=== PATIENT | male | born 1980 | race Caucasian/White ===

== ENCOUNTER 2019-02-24 08:54 | Emergency (ER) | payer MEDICAID ==
[2019-02-24 09:02] VITALS: BP 136/86
--- NOTE | 2019-02-24 09:59 | EDPHY ---
General - History Smoking Status: Current every day smoker Time Seen by Provider: 02/24/19 09:34 Narrative: CLINICAL IMPRESSION: SCABIES, CHRONIC FOOT PAIN ASSESSMENT/PLAN: 38-year-old homeless male presents to the emergency department with complaints of chronic pain to both feet x3 weeks and possible scabies to left wrist. Patient reports the lesions on his wrist look "exactly like the scabies I had a couple weeks ago". There are no signs of secondary infection, blistering, open wounds or cellulitis. Patient has chronic erythema to his feet suggestive of previous minor frostbite and admits that he walks frequently during the day. There are no secondary signs of cellulitis, trench foot, septic joint, or deep space infection. Patient reports vaccines are up-to-date. He reportedly had extensive workup for his feet recently at [facility] that was unremarkable. I advised that he stay off his feet, follow up with a local primary care provider and permethrin cream was prescribed. Warning signs return to ED sooner discussed and discharge DIFFERENTIAL DX: Differential includes but not limited to scabies, bedbugs, cellulitis, trench foot, septic joint CHIEF COMPLAINT: Bilateral feet pain x3 weeks, possible scabies HPI: 38-year-old homeless male presents to the emergency department with complaints of bilateral feet pain x3 weeks and possible scabies to left wrist. Patient reports taking permethrin for scabies several weeks ago in believe it came back. He is currently sleeping outside. He also reports abusing IV drugs, IV methamphetamine, last use was 3 days ago. He did report trying to inject a vein in his foot but missed. He denies any frostbite injury or wet footwear. He denies fevers and chills. He walks a lot during the day. He is supposed to take lisinopril and atorvastatin but does not have a local primary care doctor. He was apparently seen recently at [facility] for his feet, reportedly had "a complete workup for endocarditis that was negative". Patient reports he has relocated to our area because he does not like [facility]. PAST MEDICAL HISTORY: Hypertension, hyperlipidemia, IV drug abuse See triage summary and nurse notes for addition applicable history Pertinent Past Surgical History: None reported Family History: Noncontributory Social History: Homeless, abuses IV drugs REVIEW OF SYSTEMS: A full 10 point review of systems was negative except for those mentioned in HPI. PHYSICAL EXAM: General Appearance: Alert, oriented, appropriate, cooperative, NAD, sleeping comfortably on the bed, I have to shake the patient to wake him, well hydrated, non-toxic appearing, VSS, no hypoxia. Respiratory: There are no retractions, lungs are clear to auscultation. Cardiac: Regular rate and rhythm, no murmurs or gallops. Skin: Small patch of raised red sores on the lateral left wrist. No blistering , erythema, warmth or suggestion of underlying cellulitis or septic joint. Musculoskeletal:. Thickened callus and red skin noted to the bottom of both feet, this is suggestive of chronic exposure to the elements and does not appear consistent with cellulitis, trench foot, or septic joint. There are no open wounds. Patient is not diabetic. Neurovascular exam is intact. MEDICAL DECISION MAKING: Patient was seen independently. Secondary supervising physician at time of evaluation was: Dr. Tapia. Diagnosis: Chronic feet pain, scabies of the skin. New, requires workup Summary: See Assessment and Plan for summary of ED visit Patient Progress: Stable for discharge. (Pedro Reyes) Discussion: The patient was evaluated and managed by the Physician Pharmacy Customer Care Specialist. My co- signature indicates that I have reviewed this chart and I agree with the findings and plan of care as documented. I am the secondary supervising physician. (Christiane Tapia) - Objective Vital Signs: Initial Vital Signs Temperature (C) 37.0 C 02/24/19 08:59 Heart Rate 78 02/24/19 08:59 Respiratory Rate 18 02/24/19 08:59 Blood Pressure 136/86 H 02/24/19 08:59 O2 Sat (%) 97 04/27/19 08:59 O2 Delivery Mode Room Air Allergies/Adverse Reactions: No Known Allergies Allergy (Unverified 02/24/19 08:59) Home Medications: Medication Instructions Recorded Permethrin 5% [Elimite 5%] 60 gm TP DAILY #1 cream 02/24/19 Departure - Departure Disposition: Home, Routine, Self-Care Clinical Impression: Scabies, Foot pain, bilateral Condition: Good Instructions: Scabies (ED), Swollen Joint (ED) Additional Instructions: DISCHARGE INSTRUCTIONS FROM YOUR DOCTOR Thank you for visiting our emergency department today. You were treated by a physician respiratory therapy assistant today and your case was reviewed with our ED Attending physician. Please keep in mind that discharge from the emergency department does not mean that there is nothing wrong - it simply means that we have not identified an emergency condition that requires further evaluation or treatment in the hospital. You should always plan to follow up with primary care for re- evaluation of your condition in the next 2-3 days. If you have been referred to a specialist, please call as soon as possible (today or tomorrow) to schedule your follow up appointment at the appropriate time. PLEASE STAY OFF YOUR FEET MUCH POSSIBLE. ELEVATE THE LEGS. FOLLOW UP WITH [facility] TO ESTABLISH CARE AND REFILL YOUR MEDICATIONS. PRESCRIPTION FOR PERMETHRIN CREAM WAS GIVEN FOR SCABIES. PLEASE CALL [facility] FOR FOLLOW-UP APPOINTMENT. RETURN TO THE ED FOR WORSENING FOOT PAIN, SWELLING, REDNESS, FEVER, CHILLS OR ANY OTHER CONCERN. People present with illnesses and injuries in different ways, and it is always possible that we have missed something. You may always return for re-evaluation if symptoms worsen or if they are not improving or if you develop new/different symptoms. Again, thank you for choosing our emergency department. We hope that you feel better. Referrals: NONE *PRIMARY CARE P,. [Primary Care Provider] - As per Instructions [facility],. [Clinic] - 1-2 days without fail Prescriptions: Permethrin 5% [Elimite 5%] 60 gm TP DAILY #1 cream
== END 2019-02-24 10:04 | disposition home or self-care (01) ==
DX: B86 Scabies (principal); M79.671 Pain in right foot; M79.672 Pain in left foot; G89.29 Other chronic pain; Z59.0 Homelessness